=== PATIENT | male | born 1950 | race Caucasian/White ===

== ENCOUNTER 2018-01-05 10:00 | Inpatient (IN) | payer MEDICARE, OTHER ==
[2018-01-05 10:04] VITALS: BMI 22.8
--- NOTE | 2018-01-05 10:54 | C.PDOC ---
History Of Present Illness 67 year old male, whose PMHx includes HTN and Hyperlipidemia, is brought to the ED via ambulance for evaluation of chest pain. As per family member who is translating at bedside, pt has had 3 episodes of syncope in the last week. The episodes consist of chest pain, sob, diaphoresis, and then "losses consciousness ". PT denies falling to the ground or hitting his head. The episodes last approx 5 minutes before they self-resolve. Patient was given sublingual Nitroglycerin prior to arrival and states his chest pain has currently resolved. Patient denies any pain at this time, as well as nausea, vomiting, leg pain, leg swelling, extremity numbness/weakness. Patient states he takes a baby Aspirin on a daily basis. Also notes similar episode 5 years ago , after which he was suppose to get cath and has not done so. Time Seen by Provider: 01/05/18 10:22 Chief Complaint (Nursing): Syncope History Per: Patient, Family History/Exam Limitations: no limitations Onset/Duration Of Symptoms: Days, Intermittent Episodes Current Symptoms Are (Timing): Better Seizure Or Post-ictal Symptoms: None Fall Associated With With Symptoms: No Additional History Per: Patient, Family - Symptoms Of CVA Recent Aspirin Use: Yes (Last Taken) (baby aspirin on a daily basis) Past Medical History Reviewed: Historical Data, Nursing Documentation, Vital Signs Vital Signs: Last Vital Signs Temp 98.6 F 01/05/18 14:07 Pulse 66 01/05/18 14:07 Resp 16 01/05/18 14:07 BP 155/82 H 01/05/18 14:07 Pulse Ox 98 01/05/18 16:17 - Medical History PMH: HTN, Hyperlipidemia Surgical History: No Surg Hx Family History: States: Unknown Family Hx - Social History Hx Tobacco Use: Yes Hx Alcohol Use: No Hx Substance Use: No - Immunization History Hx Tetanus Toxoid Vaccination: No Hx Influenza Vaccination: No Hx Pneumococcal Vaccination: No Review Of Systems Constitutional: Positive for: Sweats Cardiovascular: Positive for: Chest Pain Respiratory: Positive for: Shortness of Breath Gastrointestinal: Negative for: Nausea, Vomiting Musculoskeletal: Negative for: Leg Pain Skin: Negative for: Other (leg swelling ) Neurological: Positive for: Other (loss of consciousness ). Negative for: Weakness, Numbness Physical Exam - Physical Exam Appears: Non-toxic, No Acute Distress Skin: Normal Color, Warm, Dry Head: Atraumatic, Normacephalic Eye(s): bilateral: Normal Inspection, EOMI Nose: Normal Oral Mucosa: Moist Neck: Normal, Normal ROM, Supple Chest: Symmetrical, No Deformity, No Tenderness Cardiovascular: Rhythm Regular Respiratory: Normal Breath Sounds, No Rales, No Rhonchi, No Wheezing Gastrointestinal/Abdominal: Soft, No Tenderness Extremity: Normal ROM, Capillary Refill (less than 2 seconds ), No Swelling Neurological/Psych: Oriented x3, Normal Speech, Normal Cognition ED Course And Treatment - Laboratory Results Result Diagrams: 01/05/18 10:56 01/05/18 10:56 ECG: Interpreted By Me, Viewed By Me ECG Rhythm: Sinus Rhythm Rate From EC O2 Sat by Pulse Oximetry: 98 (on RA) Pulse Ox Interpretation: Normal - Other Rad CXR X-Ray: Interpreted by Me, Viewed By Me, Read By Radiologist Interpretation: PROCEDURE: CHEST RADIOGRAPH, 1 VIEW. HISTORY: SOB. COMPARISON: None available. FINDINGS: LUNGS: Poor inspiration with low lung volumes, crowded bronchovascular markings and mild bibasilar atelectasis. PLEURA: No pneumothorax or pleural fluid seen. CARDIOVASCULAR: Cardiomegaly. OSSEOUS STRUCTURES: No significant abnormalities. VISUALIZED UPPER ABDOMEN: Normal. OTHER FINDINGS: None. IMPRESSION: Poor inspiration with low lung volumes, crowded bronchovascular markings and mild bibasilar atelectasis. - CT Scan/US CT Chest Other Rad Studies (CT/US): Interpreted By Me, Read By Radiologist, Radiology Report Reviewed CT/US Interpretation: PROCEDURE: CT Chest with contrast (Pulmonary Angiogram). HISTORY: SOB. COMPARISON: None available. TECHNIQUE: Axial computed tomography images were obtained of the chest in the pulmonary arterial phase of enhancement. Coronal and sagittal reformatted images were created and reviewed. Intravenous contrast dose: 100 cc Visipaque 320. Radiation dose: Total exam DLP = 415.24 mGy-cm. This CT exam was performed using one or more of the following dose reduction techniques: Automated exposure control, adjustment of the mA and/or kV according to patient size, and/or use of iterative reconstruction technique. FINDINGS: PULMONARY ARTERIES: The visualized pulmonary trunk, right and left main, lobar, segmental and proximal subsegmental branches of the pulmonary arteries are patent with no definitive central filling defects seen to suggest acute central pulmonary embolus. Pulmonary trunk measures approximately 3.2 cm. AORTA: No acute findings. No thoracic aortic aneurysm. Ascending thoracic aorta measures approximately 3.6 cm and descending thoracic aorta measures approximately 3.1 cm. There appears to be thrombus within superolateral aspect transverse portion of the aortic arch. Thrombus extends inferiorly along the descending thoracic aorta is well. Partially calcified atherosclerotic plaque also present along the at ascending transverse and descending thoracic aorta. LUNGS: Mild passive/dependent type atelectasis both posterior lower lung zones. Small bleb changes are present within both the posterior lung apices/upper lobes. . Additionally, there also appears to be some minor ground-glass opacities both lower lung almazan possibly representing some air trapping however no focal consolidation. PLEURAL SPACES: Unremarkable. No effusion or pneumothorax. HEART: Unremarkable. No cardiomegaly. No significant pericardial effusion. LYMPH NODES: No multiple small nonspecific mediastinal. Central airways midline and patent. No large central endoluminal lesions. Lymph nodes are present. BONES, CHEST WALL: Unremarkable. No fracture or destructive lesion. OTHER FINDINGS: Cholecystectomy. There is a rounded peripherally calcified mass lesion with central low attenuation within the dome of the liver that measures approximately 3.5 x 3.5 x 3.2 cm. This lesion is of uncertain etiology although could represent infectious/inflammatory lesion such is a peripherally calcified abscess or ecchinococcal cyst. The possibility of a benign peripherally calcified neoplasm not excluded. . Follow-up CT scan with liver protocol could be performed for further evaluation. IMPRESSION: No evidence of acute central pulmonary embolus. Mild passive/dependent type atelectasis both posterior lower lung zones. Small bleb changes are present within both the posterior lung apices/upper lobes. . Additionally, there also appears to be some minor ground-glass opacities both lower lung almazan possibly representing some air trapping however no focal consolidation. There is a rounded peripherally calcified mass lesion with central low attenuation within the dome of the liver that measures approximately 3.5 x 3.5 x 3.2 cm. This lesion is of uncertain etiology although could represent infectious/inflammatory lesion such is a peripherally calcified abscess or ecchinococcal cyst. The possibility of a benign peripherally calcified neoplasm not excluded. . Follow-up CT scan with liver protocol could be performed for further evaluation. Progress Note: Bloodwork, CXR, EKG ordered and reviewed. Aspirin PO administered. CAse discussed with Dr Joya , agreed upon plan and admission. Disposition - Disposition Disposition: HOSPITALIZED Disposition Time: 12:00 Condition: STABLE - Clinical Impression Clinical Impression: Syncope, Chest pain - PA / WIRE SETTER / Resident Statement MD/DO has reviewed & agrees with the documentation as recorded. - Scribe Statement The provider has reviewed the documentation as recorded by the Scribe (Mary Anne Cano) All medical record entries made by the Scribe were at my direction and personally dictated by me. I have reviewed the chart and agree that the record accurately reflects my personal performance of the history, physical exam, medical decision making, and the department course for this patient. I have also personally directed, reviewed, and agree with the discharge instructions and disposition.
[2018-01-05 11:03] LABS: BASO # 0.1 K/uL (0.0-0.2); BASO % 0.6 % (0.0-2.0); EOS % 0.3 % (0.0-4.0); HEMOGLOBIN 14.4 g/dL (12.0-18.0); LYMPH # 1.4 K/uL (1.0-4.3); MEAN CORPUSCULAR HEMOGLOBIN 28.8 pg (27.0-31.0); MEAN CORPUSCULAR HGB CONC 33.9 g/dL (33.0-37.0); MEAN PLATELET VOLUME 8.4 fL (7.2-11.7); MONO # 0.5 K/uL (0.0-0.8); NEUT # 8.5 K/uL (1.8-7.0); NEUT % 81.1 % (50.0-75.0); NRBC % 0.1 % (0.0-2.0); RBC 5.01 Mil/uL (4.40-5.90); RED CELL DISTRIBUTION WIDTH 14.8 % (11.5-14.5); WHITE BLOOD COUNT 10.5 K/uL (4.8-10.8)
[2018-01-05 11:18] LABS: INR 1.1; PROTHROMBIN TIME 12.3 SECONDS (9.7-12.2)
[2018-01-05 11:21] LABS: ALB/GLOB RATIO 1.3 (1.0-2.1); ALBUMIN 4.3 g/dL (3.5-5.0); ALT/SGPT 26 U/L (21-72); AST/SGOT 29 U/L (17-59); BLOOD UREA NITROGEN 21 mg/dL (9-20); CALCIUM 8.8 mg/dl (8.6-10.4); GFR AFRICAN-AMERICAN > 60; GFR NON-AFRICAN AMERICAN 50
[2018-01-05 11:30] LABS: B-TYPE NATRIURETIC PEPTIDE 2650 pg/mL (0-900)
[2018-01-05] MEDS ORDERED: Iodixanol 320 MG/ML 100 ML BOTTLE IV ONE (12:37)
--- NOTE | 2018-01-05 13:08 | RAD ---
PROCEDURE: CHEST RADIOGRAPH, 1 VIEW HISTORY: SOB COMPARISON: None available. FINDINGS: LUNGS: Poor inspiration with low lung volumes, crowded bronchovascular markings and mild bibasilar atelectasis. PLEURA: No pneumothorax or pleural fluid seen. CARDIOVASCULAR: Cardiomegaly. OSSEOUS STRUCTURES: No significant abnormalities. VISUALIZED UPPER ABDOMEN: Normal. OTHER FINDINGS: None. IMPRESSION: Poor inspiration with low lung volumes, crowded bronchovascular markings and mild bibasilar atelectasis.
--- NOTE | 2018-01-05 14:04 | CT ---
PROCEDURE: CT Chest with contrast (Pulmonary Angiogram) HISTORY: SOB COMPARISON: None available. TECHNIQUE: Axial computed tomography images were obtained of the chest in the pulmonary arterial phase of enhancement. Coronal and sagittal reformatted images were created and reviewed. Intravenous contrast dose: 100 cc Visipaque 320 Radiation dose: Total exam DLP = 415.24 mGy-cm. This CT exam was performed using one or more of the following dose reduction techniques: Automated exposure control, adjustment of the mA and/or kV according to patient size, and/or use of iterative reconstruction technique. FINDINGS: PULMONARY ARTERIES: The visualized pulmonary trunk, right and left main, lobar, segmental and proximal subsegmental branches of the pulmonary arteries are patent with no definitive central filling defects seen to suggest acute central pulmonary embolus. Pulmonary trunk measures approximately 3.2 cm AORTA: No acute findings. No thoracic aortic aneurysm. Ascending thoracic aorta measures approximately 3.6 cm and descending thoracic aorta measures approximately 3.1 cm. There appears to be thrombus within superolateral aspect transverse portion of the aortic arch. Thrombus extends inferiorly along the descending thoracic aorta is well. Partially calcified atherosclerotic plaque also present along the at ascending transverse and descending thoracic aorta. LUNGS: Mild passive/dependent type atelectasis both posterior lower lung zones. Small bleb changes are present within both the posterior lung apices/upper lobes. . Additionally, there also appears to be some minor ground-glass opacities both lower lung almazan possibly representing some air trapping however no focal consolidation. PLEURAL SPACES: Unremarkable. No effusion or pneumothorax. HEART: Unremarkable. No cardiomegaly. No significant pericardial effusion. LYMPH NODES: No multiple small nonspecific mediastinal Central airways midline and patent. No large central endoluminal lesions. Lymph nodes are present. BONES, CHEST WALL: Unremarkable. No fracture or destructive lesion OTHER FINDINGS: Cholecystectomy. There is a rounded peripherally calcified mass lesion with central low attenuation within the dome of the liver that measures approximately 3.5 x 3.5 x 3.2 cm. This lesion is of uncertain etiology although could represent infectious/inflammatory lesion such is a peripherally calcified abscess or ecchinococcal cyst. The possibility of a benign peripherally calcified neoplasm not excluded. . Follow-up CT scan with liver protocol could be performed for further evaluation. IMPRESSION: No evidence of acute central pulmonary embolus. Mild passive/dependent type atelectasis both posterior lower lung zones. Small bleb changes are present within both the posterior lung apices/upper lobes. . Additionally, there also appears to be some minor ground-glass opacities both lower lung almazan possibly representing some air trapping however no focal consolidation. There is a rounded peripherally calcified mass lesion with central low attenuation within the dome of the liver that measures approximately 3.5 x 3.5 x 3.2 cm. This lesion is of uncertain etiology although could represent infectious/inflammatory lesion such is a peripherally calcified abscess or ecchinococcal cyst. The possibility of a benign peripherally calcified neoplasm not excluded. . Follow-up CT scan with liver protocol could be performed for further evaluation.
[2018-01-05 20:21] VITALS: RESP 20
[2018-01-05 21:18] LABS: CK-MB 0.87 ng/mL (0.0-3.38); TROPONIN I 0.07 ng/mL (0.00-0.120)
[2018-01-06 03:42] LABS: CK-MB 0.92 ng/mL (0.0-3.38); TROPONIN I 0.079 ng/mL (0.00-0.120)
[2018-01-06] MEDS: Enoxaparin 40 mg Syringe SC SCH (09:48)
--- NOTE | 2018-01-06 11:03 | CP.PCM.HP ---
History of Present Illness - History of Present Illness History of Present Illness: History Of Present Illness 67 year old male, whose PMHx includes HTN and Hyperlipidemia, is brought to the ED via ambulance for evaluation of chest pain. As per family member who is translating at bedside, pt has had 3 episodes of syncope in the last week. The episodes consist of chest pain, sob, diaphoresis, and then "losses consciousness ". PT denies falling to the ground or hitting his head. The episodes last approx 5 minutes before they self-resolve. Patient was given sublingual Nitroglycerin prior to arrival and states his chest pain has currently resolved. Patient denies any pain at this time, as well as nausea, vomiting, leg pain, leg swelling, extremity numbness/weakness. Patient states he takes a baby Aspirin on a daily basis. Also notes similar episode 5 years ago , after which he was suppose to get cath and has not done so. Past Patient History - Past Social History Smoking Status: Light Smoker < 10 Cigarettes Daily - CARDIAC Hx Hypertension: Yes - MUSCULOSKELETAL/RHEUMATOLOGICAL Hx Falls: No - PSYCHIATRIC Hx Substance Use: No - SURGICAL HISTORY Hx Surgeries: Yes Hx Cholecystectomy: Yes (2012) - ANESTHESIA Hx Anesthesia: Yes Hx Anesthesia Reactions: No Hx Malignant Hyperthermia: No Has any member of the family had a problem w/ anesthesia?: No Meds Allergies/Adverse Reactions: Allergies Allergy/AdvReac Type Severity Reaction Status Date / Time No Known Allergies Allergy Unverified 05/17/15 13:18 Results - Vital Signs Recent Vital Signs: Last Vital Signs Temp 98.6 F 01/06/18 08:10 Pulse 44 L 01/06/18 08:54 Resp 20 01/06/18 08:54 BP 169/91 H 01/06/18 08:54 Pulse Ox 98 01/06/18 08:54 - Labs Result Diagrams: 01/05/18 10:56 01/05/18 10:56 Labs: Laboratory Results - last 24 hr 01/05/18 01/05/18 01/05/18 10:56 10:56 10:56 WBC 10.5 RBC 5.01 Hgb 14.4 Hct 42.6 MCV 85.0 MCH 28.8 MCHC 33.9 RDW 14.8 H Plt Count 191 MPV 8.4 Neut % (Auto) 81.1 H Lymph % (Auto) 13.0 L [place] % (Auto) 5.0 Eos % (Auto) 0.3 Baso % (Auto) 0.6 Neut # (Auto) 8.5 H Lymph # (Auto) 1.4 [place] # (Auto) 0.5 Eos # (Auto) 0.0 Baso # (Auto) 0.1 PT 12.3 H INR 1.1 APTT 29 D-Dimer, Quantitative 674 H Sodium 138 Potassium 4.2 Chloride 105 Carbon Dioxide 22 Anion Gap 15 BUN 21 H Creatinine 1.4 Est GFR ( Amer) > 60 Est GFR (Non-Af Amer) 50 Random Glucose 87 Calcium 8.8 Total Bilirubin 0.7 AST 29 ALT 26 Alkaline Phosphatase 69 Total Creatine Kinase 70 CK-MB (Mass) 0.70 Troponin I 0.0440 NT-Pro-B Natriuret Pep 2650 H Total Protein 7.7 Albumin 4.3 Globulin 3.4 Albumin/Globulin Ratio 1.3 Triglycerides Cholesterol LDL Cholesterol Direct HDL Cholesterol TSH 3rd Generation 01/05/18 01/06/18 20:49 03:16 WBC RBC Hgb Hct MCV MCH MCHC RDW Plt Count MPV Neut % (Auto) Lymph % (Auto) [place] % (Auto) Eos % (Auto) Baso % (Auto) Neut # (Auto) Lymph # (Auto) [place] # (Auto) Eos # (Auto) Baso # (Auto) PT INR APTT D-Dimer, Quantitative Sodium Potassium Chloride Carbon Dioxide Anion Gap BUN Creatinine Est GFR ( Amer) Est GFR (Non-Af Amer) Random Glucose Calcium Total Bilirubin AST ALT Alkaline Phosphatase Total Creatine Kinase 75 55 CK-MB (Mass) 0.87 0.92 Troponin I 0.0700 0.0790 NT-Pro-B Natriuret Pep Total Protein Albumin Globulin Albumin/Globulin Ratio Triglycerides 182 H Cholesterol 219 H LDL Cholesterol Direct 146 H HDL Cholesterol 37 TSH 3rd Generation 4.24
--- NOTE | 2018-01-06 18:00 | CT ---
PROCEDURE: CT HEAD WITHOUT CONTRAST. HISTORY: SYNCOPE COMPARISON: None available. TECHNIQUE: Axial computed tomography images were obtained through the head/brain without intravenous contrast. Radiation dose: Total exam DLP = 942.5 mGy-cm. This CT exam was performed using one or more of the following dose reduction techniques: Automated exposure control, adjustment of the mA and/or kV according to patient size, and/or use of iterative reconstruction technique. FINDINGS: HEMORRHAGE: No intracranial hemorrhage. BRAIN: No mass effect or edema. Mild atrophy. Mild chronic microvascular ischemic changes. VENTRICLES: Unremarkable. No hydrocephalus. CALVARIUM: Unremarkable. PARANASAL SINUSES: Unremarkable as visualized. No significant inflammatory changes. MASTOID AIR CELLS: Unremarkable as visualized. No inflammatory changes. OTHER FINDINGS: None. IMPRESSION: No acute intracranial pathology. Age-related changes.
--- NOTE | 2018-01-06 18:17 | CP.PCM.PN ---
Subjective - Date & Time of Evaluation Date of Evaluation: 01/06/18 Time of Evaluation: 19:00 - Subjective Subjective: pt seen and examined at bedside Objective - Vital Signs/Intake and Output Vital Signs (last 24 hours): Temp Pulse Resp BP Pulse Ox 97.5 F L 64 20 161/77 H 98 01/06/18 15:05 01/06/18 15:05 01/06/18 15:05 01/06/18 15:05 01/06/18 15:05 - Medications Medications: Current Medications Aspirin (Ecotrin) 81 mg PO DAILY [facility] Last Admin: 01/06/18 09:49 Dose: 81 mg Enoxaparin Sodium (Lovenox) 40 mg SC DAILY [facility] Last Admin: 01/06/18 09:48 Dose: 40 mg Losartan Potassium (Cozaar) 25 mg PO DAILY [facility] Last Admin: 01/06/18 09:49 Dose: 25 mg Pneumococcal Polyvalent Vaccine (Pneumovax 23 Vaccine) 0.5 ml IM .ONCE ONE Stop: 01/07/18 10:01 Rosuvastatin Calcium (Crestor) 10 mg PO HS [facility] Last Admin: 01/05/18 22:30 Dose: 10 mg - Labs Labs: 01/05/18 10:56 01/05/18 10:56 PT 12.3 SECONDS (9.7-12.2) H 01/05/18 10:56 INR 1.1 01/05/18 10:56 APTT 29 SECONDS (21-34) 01/05/18 10:56
--- NOTE | 2018-01-06 22:36 | CON ---
DATE: 01/06/2018 REASON FOR CONSULTATION: Chest pain and recurrent syncopal episodes as well as periods of sinus bradycardia. HISTORY OF PRESENT ILLNESS: The patient is a 67-year-old male who is a smoker and occasional drinker who was brought in by the EMS by the family because of fainting few times in the past according to a family member who witnessed that the patient will be sitting and then he will wake up not knowing where he is at with no reported fall or seizure activity. The patient does recall experiencing dizziness prior to fainting. The patient did report chest pain. The patient denies any prior history of heart attack. SOCIAL HISTORY: The patient is smoker and occasional drinker. MEDICATIONS: Cozaar 25 mg once a day, Crestor 10 mg once a day, aspirin 81 mg once a day, Lovenox 40 mg subcutaneous once a day. REVIEW OF SYSTEMS: No fever or chills. No productive cough. No associated diaphoresis, and no recent fall. PHYSICAL EXAMINATION: GENERAL: The patient is an elderly male who does not appear to be in acute distress. VITAL SIGNS: Blood pressure heart rate the lowest was 44 beats per minute, respirations 20, temperature 98.1. HEENT: Normocephalic. CHEST: Clear. HEART: S1 and S2 regular. ABDOMEN: Soft. EXTREMITIES: No edema. LABORATORY DATA: Hemoglobin and hematocrit 14.4 and 42.6, white count 10.5, platelet count 191,000. SMA-7, sodium 138, potassium 4.2, chloride 105, CO2 of 22, glucose 87, BUN 21, creatinine 1.4. Three sets of troponins are negative. ProBNP is 2650. Triglycerides 182, total cholesterol 219, LDL cholesterol is 146, these three are elevated. TSH level is within normal limit. D-dimer is 674. INR is 1.1. Chest CT angio with PE protocol revealed no evidence of acute central pulmonary embolus. Mild passive dependent type atelectasis in both posterior lower lung zones. Small blood changes are present within both the posterior lung apices. Also minor ground-glass opacities both lower lung almazan, possibly representing some air trapping. There is rounded peripherally calcified mass lesion within the central low attenuation within the dome of the liver that measures approximately 3.5 x 3.5 x 3.2 cm, of uncertain etiology, although could represent infectious/inflammatory lesions such as peripherally calcified abscess or echinococcal cyst. Followup CT scan with liver protocol could be performed. EKG revealed sinus rhythm at rate of 78, LVH by voltage. ASSESSMENT: 1. Recurrent syncope. 2. Rule out symptomatic bradycardia. 3. Chest pain, myocardial infarction is ruled out. 4. Hyperlipidemia. 5. Liver mass. RECOMMENDATIONS: Continue Cozaar at 25 mg once a day, Crestor at 10 mg once a day, aspirin 81 mg once a day, subcutaneous Lovenox 40 mg once a day. Obtain head CT scan without contrast as well as carotid Doppler. Obtain an echocardiographic study, and I will apply 24-hour Holter monitor in the meantime. The patient may eventually need cardiac catheterization. However, other neuro causes for syncope should be excluded, especially in the presence of a liver mass. I recommend GI evaluation. Parker Workman MD
--- NOTE | 2018-01-06 22:55 | CARD ---
APPROVED REPORT EKG Measurement Heart [id number] <Conclusion> Normal sinus rhythm Voltage criteria for left ventricular hypertrophy Abnormal ECG
[2018-01-07] MEDS ORDERED: Pneumococcal 23-Valent Vaccine IM ONE (10:00)
[2018-01-07] MEDS ORDERED: Enoxaparin 40 mg Syringe SC SCH (10:00)
[2018-01-07] MEDS: Enoxaparin 40 mg Syringe SC SCH (10:19)
--- NOTE | 2018-01-07 11:47 | PN ---
DATE: 01/07/2018 LOCATION: [facility], bed B SUBJECTIVE: This is a 67 years old male seen initially for GI consultation as requested by the admitting MD on 01/06/2018, reexamined again early today with less reported actual chest pain, but midepigastric pain seen and evaluated again by the retail consultant on the case due to his bradycardia with reported mild nausea with dyspepsia, but no active bleeding and no reported vomiting. The entire chart is reviewed including but not limited to most recent lab and radiology study results, current and previous medication list, current and previous medical events. [place] was ruled out by the retail consultant. The most recent lab results showed increased lipids profile, but normal CBC with PT mildly elevated to 12.3. Chest CAT scan official report is seen as well as CAT scan of the head., with reported calcified mass lesion in the liver and MRCP in my opinion showed be performed. PHYSICAL EXAMINATION: GENERAL: A 67 years old male appeared to be awake, alert, oriented. VITAL SIGNS: Afebrile with pulse of 50, respiratory rate 20 to 22, blood pressure of 154/80. HEENT: Showed pale dry oral mucous membrane. Nonicteric sclerae. LUNGS: Few scattered crepitation. Decreased air entry at bases. HEART: Positive S1 and S2. ABDOMEN: Soft. Bowel sounds are present with slight generalized tenderness. No mass or organomegaly. No rebound tenderness or guarding. EXTREMITIES: Without significant edema, clubbing or cyanosis. NEUROLOGIC: No reported new neurological deficits, sensory or motor. No new reported focal deficits. Peripheral pulses present. IMPRESSION: 1. Chest pain, most likely noncardiac to rule out reexacerbation of peptic ulcer disease. 2. Reported syncopal episodes before. 3. Known history of hypertension, hyperlipidemia. 4. Bradycardia by recent history. 5. Abnormal radiology study results indicative of possible hepatic mass of unclear etiology. SUGGESTIONS: 1. Agree with your plan. 2. Cancer markers. 3. MRCP. 4. Endoscopic evaluation of the GI tract only after the patient is fully reevaluated by the retail consultant on the case, Dr. Workman due to the patient's bradycardia. Further evaluation and recommendation to follow. Brent Whyte MD [facility] # [id number]
[2018-01-07] MEDS ORDERED: Iodixanol 320 MG/ML 100 ML BOTTLE IV ONE (12:08)
[2018-01-07 12:13] LABS: BASO # 0.1 K/uL (0.0-0.2); BASO % 0.7 % (0.0-2.0); EOS # 0.4 K/uL (0.0-0.7); EOS % 5.4 % (0.0-4.0); HEMOGLOBIN 14.5 g/dL (12.0-18.0); LYMPH % 39.4 % (20.0-40.0); MEAN CELL VOLUME 85.7 fL (80.0-94.0); MEAN CORPUSCULAR HGB CONC 33.8 g/dL (33.0-37.0); MEAN PLATELET VOLUME 8.2 fL (7.2-11.7); MONO # 0.6 K/uL (0.0-0.8); MONO % 7.3 % (0.0-10.0); NEUT # 3.6 K/uL (1.8-7.0); NEUT % 47.2 % (50.0-75.0); RBC 5.01 Mil/uL (4.40-5.90); RED CELL DISTRIBUTION WIDTH 14.8 % (11.5-14.5); WHITE BLOOD COUNT 7.6 K/uL (4.8-10.8)
[2018-01-07 12:18] LABS: INR 1.1; PROTHROMBIN TIME 12.2 SECONDS (9.7-12.2)
[2018-01-07 12:35] LABS: ALB/GLOB RATIO 1.2 (1.0-2.1); ALT/SGPT 18 U/L (21-72); AST/SGOT 26 U/L (17-59); BLOOD UREA NITROGEN 18 mg/dL (9-20); CALCIUM 9.1 mg/dl (8.6-10.4); GFR AFRICAN-AMERICAN > 60; GFR NON-AFRICAN AMERICAN 55
--- NOTE | 2018-01-07 18:10 | US ---
HISTORY: liver mass by c.t.scan COMPARISON: CT abdomen and pelvis performed the same day. TECHNIQUE: Sonographic evaluation of the abdomen. FINDINGS: LIVER: Measures 15.6 cm. There is diffuse increased echogenicity of the liver parenchyma. There is a 3.7 x 3.7 x 3.6 cm well-circumscribed partially calcified round hypoechoic mass in the right hepatic lobe. No intrahepatic bile duct dilatation. GALLBLADDER: Surgically absent. COMMON BILE DUCT: Measures 8.0 mm. No stones. Mild dilatation in keeping with postcholecystectomy status. PANCREAS: Unremarkable as visualized. No mass. No ductal dilatation. RIGHT KIDNEY: Measures 9.0cm. Normal echogenicity. No calculus, mass, or hydronephrosis. There are multiple simple cysts, the largest in the lower pole measures 3.1 x 2.4 x 2.9 cm. LEFT KIDNEY: Measures 11.5cm. Normal echogenicity. No calculus, mass, or hydronephrosis. There are 2 simple cysts in the lower pole, the larger measures 1.3 x 1.3 x 1.0 cm. SPLEEN: Not visualized. AORTA: The aorta is ectatic. Atherosclerotic changes. IVC: Unremarkable. OTHER FINDINGS: None. IMPRESSION: 3.7 x 3.7 x 2.6 cm partially calcified round mass in the right hepatic lobe, the differential considerations include nonspecific infectious/ inflammatory processes including echinococcal cyst, calcified hematoma and calcified neoplasm. Fatty liver.
--- NOTE | 2018-01-07 21:20 | PN ---
DATE: 01/07/2018 SUBJECTIVE: The patient denies any abdominal pain, dizziness or chest pain. The patient's last heart rate this morning was 47 beats per minute. PHYSICAL EXAMINATION: VITAL SIGNS: Blood pressure 164/85, heart rate 59, temperature 97.8, respirations 20. HEENT: Normocephalic. CHEST: Clear. HEART: S1 and S2 regular. ABDOMEN: Soft. EXTREMITIES: No edema. LABORATORY DATA: Today's SMA-7 is within normal limits except glucose of 73 and carbon dioxide of 31. Today's hemoglobin and hematocrit 14.5 and 43, white count and platelet count are within normal limit. ASSESSMENT: 1. Recurrent syncope. 2. Sinus bradycardia. 3. Chest pain, myocardial infarction is ruled out. 4. A 3.5 x 3.5 x 3.2 peripherally calcified liver mass noted on the chest CT scan. 5. Rule out underlying ____ disease. RECOMMENDATIONS: Continue current Cozaar at 100 mg once a day, Crestor at 10 mg once a day, aspirin 81 mg once a day, Lovenox at 40 mg subcutaneously once a day. I will review the official report of the liver CT scan as well as the abdominal ultrasound. Head CT scan was already done and did not reveal any acute findings. Case was discussed with the patient's family as well as the primary physician. If the patient is cleared for cardiac catheterization, the procedure will be performed as early as Tuesday. Parker Workman MD
[2018-01-08] MEDS: Enoxaparin 40 mg Syringe SC SCH (10:42)
--- NOTE | 2018-01-08 14:44 | PN ---
DATE: 01/08/2018 LOCATION: 668, bed B. SUBJECTIVE: This is a 67-year-old male seen and examined in rounds early today without any significant clinical changes but again with lower heart rate. Seen and reexamined again by the [facility] consultant on the case. The patient has been denying any significant abdominal pain or chest pain this morning with mild dizziness but intermittent periods of mild nausea with slight dyspepsia. Most recent lab results showed normal CBC with increased PTT and period of hypoglycemia with elevated lipid profile. His CEA level is 3.4 but normal alpha-fetoprotein. PHYSICAL EXAMINATION: GENERAL: A 67-year-old male, awake, alert, and oriented. VITAL SIGNS: Afebrile with pulse 62, respiratory rate 20 to 22, blood pressure 138/76. HEENT: Showed pale, dry oral mucous membranes. Nonicteric sclerae. LUNGS: A few scattered crepitation. Decreased air entry at bases. HEART: Positive S1 and S2. ABDOMEN: Soft, mild generalized slight tenderness. No mass or organomegaly. No rebound tenderness or guarding. NEUROLOGIC: No reported new neurological deficits, sensory or motor. Peripheral pulses are present bilaterally. IMPRESSION: 1. Chest pain, most likely noncardiac. 2. Bradycardia. 3. Liver mass lesion of unclear etiology. 4. Reported syncopal episodes before. 5. Known history of hyperlipidemia and hypertension. SUGGESTIONS: 1. MRCP. 2. The patient may need biopsy of the hepatic mass guided by ultrasound by the IR staff. 3. Due to the elevated CEA level, colonoscopy is to be kept in mind when the patient is more stable clinically. That to be discussed at length with the admitting medical staff as well as the [facility] consultant on the case. Further recommendation to follow. Brent Whyte MD
--- NOTE | 2018-01-08 16:09 | CT ---
PROCEDURE: CT Abdomen with and without intravenous contrast HISTORY: mass COMPARISON: Ultrasound abdomen from 01/07/2018. TECHNIQUE: Axial images of the abdomen from lung bases to iliac crest with and without intravenous contrast enhancement according to the standard department liver protocol triple phase examination. Coronal and sagittal reformats generated. Oral contrast also administered. Intravenous contrast Dose: 100 mL Visipaque Radiation dose: Total exam DLP = 1299.98 mGy-cm. This CT exam was performed using one or more of the following dose reduction techniques: Automated exposure control, adjustment of the mA and/or kV according to patient size, and/or use of iterative reconstruction technique. FINDINGS: LOWER THORAX: There is subsegmental atelectasis in the lower lobes. LIVER: The liver is normal in size. There is a 3.2 x 3.5 cm peripherally calcified nonenhancing low-attenuation mass in the right hepatic lobe. No intrahepatic biliary ductal dilatation. GALLBLADDER AND BILE DUCTS: Surgically absent. PANCREAS: Normal in size. No gross lesion or ductal dilatation. SPLEEN: Normal in size and appearance. ADRENALS: No discrete nodule. KIDNEYS AND URETERS: Normal in size with homogeneous enhancement. There are punctate nonobstructing stones in the left kidney. There are simple cysts in the right kidney, the largest exophytic cyst in the lower pole measures 2.7 x 3.2 cm. Small subcentimeter simple cysts in the left kidney. No hydronephrosis. No solid mass. 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 BOWEL:: The small bowel loops are normal in caliber. There is left colonic diverticulosis without CT evidence for acute diverticulitis. No bowel dilatation or obstruction. APPENDIX: Normal appendix. PERITONEUM: No free fluid. No free air. LYMPH NODES: No enlarged lymph nodes. BLADDER: Normal in appearance. REPRODUCTIVE: Unremarkable. BONES: No acute fracture. OTHER FINDINGS: Small fat containing umbilical hernia. IMPRESSION: Rim calcified 3.2 x 3.5 cm nonenhancing round mass in the right hepatic lobe. The differential considerations include nonspecific infectious/ inflammatory processes including echinococcus cyst, chronic abscess, partially calcified hematoma or calcified neoplasm. Additional non acute findings as described above. A preliminary report was provided by [email or web address].
--- NOTE | 2018-01-08 19:28 | PN ---
DATE: 01/08/2018 SUBJECTIVE: The patient denies any abdominal pain or chest pain. No dizziness and no reported significant bradycardia. PHYSICAL EXAMINATION: VITAL SIGNS: Blood pressure 146/82, heart rate 62, temperature 97.4, respirations 20. HEENT: Normocephalic. CHEST: Clear. HEART: S1 and S2 regular. ABDOMEN: Soft. EXTREMITIES: No edema. Abdominal ultrasound revealed 3.7 x 3.7 x 2.6 cm partially calcified mass in the right hepatic lobe. His differential diagnosis includes nonspecific infection, inflammatory processes including echinococcus cyst, calcified hematoma, or calcified neoplasm, fatty liver. Liver CT scan was performed but the report is still pending. ASSESSMENT: 1. Chest pain, myocardial infarction is ruled out. 2. Recurrent syncope. 3. Partially calcified liver mass. 4. Hyperlipidemia. RECOMMENDATIONS: Continue current aspirin 81 mg once a day, Crestor 10 mg once a day, Cozaar 100 mg once a day, subcutaneous Lovenox at 40 mg once a day. I will follow official report of liver CT scan prior to scheduling the patient for cardiac catheterization. Parker Workman MD
--- NOTE | 2018-01-08 23:26 | CON ---
DATE: 01/06/[address] Whyte to Dr. Rafat Rosales. I was called for GI consultation by the admitting MD. The patient is seen and fully examined on 01/06/2018 as requested by the admitting medical staff. Again, the entire chart is reviewed including but not limited to the most recent lab and radiology study results, current and the previous medication lists, current and the previous medical events. HISTORY OF PRESENT ILLNESS: This is a 67 years old male who was admitted to the hospital through the emergency room due to reported chest pain, seen by artist consultant for that reason, and RI was ruled out associated with what reported as three episodes of syncope last week of unclear etiology. There was intermittent period of dyspepsia, but no reported active bleeding, significant shortness of breath, chills, or fever. PAST MEDICAL HISTORY: Including mainly but not limited to, 1. Hypertension. 2. Hyperlipidemia. 3. Peptic ulcer disease. 4. Reported episodes of syncope before. FAMILY HISTORY: Unknown. SOCIAL HISTORY: Positive for cigarette smoking, but denied alcohol intake. CURRENT MEDICATIONS: Post-admission medication list was reviewed. Troponin level was reported to be negative. ALLERGY TO MEDICATION: UNCLEAR. Initial blood workup showed normal SMA-7 as well as normal CBC. Abdomen and pelvic CAT scan was indicative for status post cholecystectomy as per the report as well as reported calcified hepatic mass lesion of unclear etiology. No possibility of . PHYSICAL EXAMINATION: GENERAL: A 67 years old male, appears to be somewhat sleepy. Complaining of mild midepigastric and midsternal discomfort. VITAL SIGNS: Afebrile with a pulse of 60, respiratory rate 18 to 20, blood pressure 150/80. HEENT: Showed pale, dry oral mucous membranes mildly, nonicteric sclerae. LYMPH NODES: No lymphadenitis or lymphadenopathy. LUNGS: Few scattered crepitation. Decreased air entry at bases. HEART: Positive S1 and S2. ABDOMEN: Soft with mild abdominal distention. No mass or organomegaly. No rebound tenderness or guarding. EXTREMITIES: Without significant clubbing, cyanosis or edema. NEUROLOGIC: No reported new neurological deficits, sensory or motor. IMPRESSION: 1. Re-exacerbation of peptic ulcer disease. 2. Hepatic mass lesion of unclear etiology. 3. Syncopal episodes. 4. Chest pain, most likely noncardiac. SUGGESTIONS: 1. Agree with your plan. 2. Carotid ultrasound. 3. MRCP with contrast. 4. Cancer markers including alpha-fetoprotein, CEA, and CA 19-9. 5. Endoscopic evaluation of the GI tract only after complete cardiology workup, as needed. 6. Further recommendation to follow. The patient may need CAT scan guided needle biopsy of the hepatic lesion depending on the outcome of the MRCP. Thank you for letting me to participate in your patient's case management. Brent Whyte MD
--- NOTE | 2018-01-09 00:02 | CP.PCM.PN ---
Subjective - Date & Time of Evaluation Date of Evaluation: 01/07/18 Time of Evaluation: 19:00 - Subjective Subjective: The patient seen and examined Objective - Vital Signs/Intake and Output Vital Signs (last 24 hours): Temp Pulse Resp BP Pulse Ox 97.6 F 68 20 169/79 H 97 01/08/18 17:16 01/08/18 21:00 01/08/18 17:16 01/08/18 17:16 01/08/18 17:16 - Medications Medications: Current Medications Aspirin (Ecotrin) 81 mg PO DAILY [facility] Last Admin: 01/08/18 10:42 Dose: 81 mg Enoxaparin Sodium (Lovenox) 40 mg SC DAILY [facility] Last Admin: 01/08/18 10:42 Dose: 40 mg Losartan Potassium (Cozaar) 100 mg PO DAILY [facility] Last Admin: 01/08/18 10:42 Dose: 100 mg Rosuvastatin Calcium (Crestor) 10 mg PO HS [facility] Last Admin: 01/08/18 21:37 Dose: 10 mg - Labs Labs: 01/07/18 11:56 01/07/18 11:56 PT 12.2 SECONDS (9.7-12.2) 01/07/18 11:56 INR 1.1 01/07/18 11:56 APTT 37 SECONDS (21-34) H D 01/07/18 11:56
--- NOTE | 2018-01-09 00:06 | CP.PCM.PN ---
Subjective - Date & Time of Evaluation Date of Evaluation: 01/07/18 Time of Evaluation: 17:00 - Subjective Subjective: The patient seen and examined Objective - Vital Signs/Intake and Output Vital Signs (last 24 hours): Temp Pulse Resp BP Pulse Ox 97.6 F 68 20 169/79 H 97 01/08/18 17:16 01/08/18 21:00 01/08/18 17:16 01/08/18 17:16 01/08/18 17:16 - Medications Medications: Current Medications Aspirin (Ecotrin) 81 mg PO DAILY [facility] Last Admin: 01/08/18 10:42 Dose: 81 mg Enoxaparin Sodium (Lovenox) 40 mg SC DAILY [facility] Last Admin: 01/08/18 10:42 Dose: 40 mg Losartan Potassium (Cozaar) 100 mg PO DAILY [facility] Last Admin: 01/08/18 10:42 Dose: 100 mg Rosuvastatin Calcium (Crestor) 10 mg PO HS [facility] Last Admin: 01/08/18 21:37 Dose: 10 mg - Labs Labs: 01/07/18 11:56 01/07/18 11:56 PT 12.2 SECONDS (9.7-12.2) 01/07/18 11:56 INR 1.1 01/07/18 11:56 APTT 37 SECONDS (21-34) H D 01/07/18 11:56
[2018-01-09 02:15] VITALS: TEMP 97.5
[2018-01-09 08:35] VITALS: BP 162/92; PULSE 61; O2SAT 97
[2018-01-09] MEDS: Enoxaparin 40 mg Syringe SC SCH (10:39)
--- NOTE | 2018-01-09 10:42 | CARD ---
APPROVED REPORT EXAM: Two-dimensional and M-mode echocardiogram with Doppler and color Doppler. Other Information Quality : [employer] : INDICATION Chest Pain RISK FACTORS Hypertension Hyperlipidemia 2D DIMENSIONS IVSd1.2 (0.7-1.1cm)LVDd4.7 (3.9-5.9cm) PWd1.2 (0.7-1.1cm)LVDs3.3 (2.5-4.0cm) FS (%) 30.7 %LVEF (%)58.2 (>50%) M-Mode DIMENSIONS Left Atrium (MM)3.20 (2.5-4.0cm)IVSd1.32 (0.7-1.1cm) Aortic Root3.79 (2.2-3.7cm)LVDd4.88 (4.0-5.6cm) Aortic Cusp Exc.2.44 (1.5-2.0cm)PWd1.16 (0.7-1.1cm) FS (%) 28 %LVDs3.49 (2.0-3.8cm) LVEF (%)55 (>50%) Mitral Valve MV E Bvqcyvvm88.3cm/sMV A Jjjwrtfy56.4cm/sE/A ratio0.6 TDI E/Lateral E'0.0E/Medial E'0.0 Tricuspid Valve TR Peak Lqwbbjsc667ns/sTR Peak Gr.[id number] LEFT VENTRICLE The left ventricle is normal size. There is normal left ventricular wall thickness. The left ventricular function is normal. The left ventricular ejection fraction is within the normal range. No regional wall motion abnormalities noted. Transmitral Doppler flow pattern is Grade I-abnormal relaxation pattern. Normal lv filling pressure No left ventricle thrombus noted on this study. There is no ventricular septal defect visualized. There is no left ventricular aneurysm. There is no mass noted in the left ventricle. RIGHT VENTRICLE The right ventricle is normal size. There is normal right ventricular wall thickness. The right ventricular systolic function is normal. ATRIA The left atrium size is normal. The right atrium size is normal. The interatrial septum is intact with no evidence for an atrial septal defect. AORTIC VALVE The aortic valve is normal in structure and function. No aortic regurgitation is present. There is no aortic valvular stenosis. There is no aortic valvular vegetation. MITRAL VALVE The mitral valve is normal in structure and function. There is no evidence of mitral valve prolapse. There is no mitral valve stenosis. Mitral regurgitation is mild. TRICUSPID VALVE The tricuspid valve is normal in structure and function. There is no tricuspid valve regurgitation noted. There is no tricuspid valve prolapse or vegetation. There is no tricuspid valve stenosis. PULMONIC VALVE The pulmonary valve is normal in structure and function. There is no pulmonic valvular regurgitation. There is no pulmonic valvular stenosis. GREAT VESSELS The aortic root is normal in size. The ascending aorta is normal in size. The pulmonary artery is normal. The IVC is normal in size and collapses >50% with inspiration. PERICARDIAL EFFUSION The pericardium appears normal. There is no pleural effusion. <Conclusion> The left ventricular function is normal. The left ventricular ejection fraction is within the normal range. No regional wall motion abnormalities noted. Mitral regurgitation is mild.
[2018-01-09] MEDS ORDERED: Lidocaine 2% MPF (5 ml) Inj ONE (12:58)
[2018-01-09] MEDS ORDERED: Midazolam 2 MG/2 ML VIAL ONE (13:12)
[2018-01-09] MEDS ORDERED: DiphenhydrAMINE 50 mg/ml Inj ONE (13:12)
[2018-01-09] MEDS ORDERED: Iodixanol 320 MG/ML 200 ML BOTTLE IV ONE (13:13)
[2018-01-09] MEDS ORDERED: Iodixanol 320 MG/ML 100 ML BOTTLE IV ONE (13:13)
[2018-01-09] MEDS ORDERED: Heparin25000 units/250ml 1/2NS 25,000 UNITS/250 ML BAG IV ONE (15:24)
--- NOTE | 2018-01-10 05:56 | CP.PCM.DIS ---
Provider - Provider Date of Admission: 01/06/18 18:47 Attending physician: Rafat Rosales MD Time Spent in preparation of Discharge (in minutes): 45 Hospital Course - Lab Results Lab Results: Most Recent Lab Values WBC 7.6 K/uL (4.8-10.8) 01/07/18 11:56 RBC 5.01 Mil/uL (4.40-5.90) 01/07/18 11:56 Hgb 14.5 g/dL (12.0-18.0) 01/07/18 11:56 Hct 43.0 % (35.0-51.0) 01/07/18 11:56 MCV 85.7 fL (80.0-94.0) 01/07/18 11:56 MCH 29.0 pg (27.0-31.0) 01/07/18 11:56 MCHC 33.8 g/dL (33.0-37.0) 01/07/18 11:56 RDW 14.8 % (11.5-14.5) H 01/07/18 11:56 Plt Count 206 K/uL (130-400) 01/07/18 11:56 MPV 8.2 fL (7.2-11.7) 01/07/18 11:56 Neut % (Auto) 47.2 % (50.0-75.0) L 01/07/18 11:56 Lymph % (Auto) 39.4 % (20.0-40.0) 01/07/18 11:56 Wharton % (Auto) 7.3 % (0.0-10.0) 01/07/18 11:56 Eos % (Auto) 5.4 % (0.0-4.0) H 01/07/18 11:56 Baso % (Auto) 0.7 % (0.0-2.0) 01/07/18 11:56 Neut # (Auto) 3.6 K/uL (1.8-7.0) 01/07/18 11:56 Lymph # (Auto) 3.0 K/uL (1.0-4.3) 01/07/18 11:56 Wharton # (Auto) 0.6 K/uL (0.0-0.8) 01/07/18 11:56 Eos # (Auto) 0.4 K/uL (0.0-0.7) 01/07/18 11:56 Baso # (Auto) 0.1 K/uL (0.0-0.2) 01/07/18 11:56 Retic Count 0.9 % (0.5-1.5) 01/07/18 11:56 PT 12.2 SECONDS (9.7-12.2) 01/07/18 11:56 INR 1.1 01/07/18 11:56 APTT 37 SECONDS (21-34) H D 01/07/18 11:56 D-Dimer, Quantitative 674 ng/mlDDU (0-243) H 01/05/18 10:56 Sodium 140 mmol/L (132-148) 01/07/18 11:56 Potassium 4.3 mmol/L (3.6-5.2) 01/07/18 11:56 Chloride 101 mmol/L (98-107) 01/07/18 11:56 Carbon Dioxide 31 mmol/L (22-30) H 01/07/18 11:56 Anion Gap 12 (10-20) 01/07/18 11:56 BUN 18 mg/dL (9-20) 01/07/18 11:56 Creatinine 1.3 mg/dL (0.8-1.5) 01/07/18 11:56 Est GFR ( Amer) > 60 01/07/18 11:56 Est GFR (Non-Af Amer) 55 01/07/18 11:56 POC Glucose (mg/dL) 82 mg/dL (65-110) 01/07/18 11:38 Random Glucose 73 mg/dL (75-110) L 01/07/18 11:56 Calcium 9.1 mg/dl (8.6-10.4) 01/07/18 11:56 Total Bilirubin 0.7 mg/dL (0.2-1.3) 01/07/18 11:56 AST 26 U/L (17-59) 01/07/18 11:56 ALT 18 U/L (21-72) L D 01/07/18 11:56 Alkaline Phosphatase 62 U/L (38-126) 01/07/18 11:56 Total Creatine Kinase 55 U/L (55-170) 01/06/18 03:16 CK-MB (Mass) 0.92 ng/mL (0.0-3.38) 01/06/18 03:16 Troponin I 0.0790 ng/mL (0.00-0.120) 01/06/18 03:16 NT-Pro-B Natriuret Pep 2650 pg/mL (0-900) H 01/05/18 10:56 Total Protein 7.4 g/dL (6.3-8.3) 01/07/18 11:56 Albumin 4.0 g/dL (3.5-5.0) 01/07/18 11:56 Globulin 3.3 gm/dL (2.2-3.9) 01/07/18 11:56 Albumin/Globulin Ratio 1.2 (1.0-2.1) 01/07/18 11:56 Triglycerides 182 mg/dL (0-149) H 01/05/18 20:49 Cholesterol 219 mg/dL (0-199) H 01/05/18 20:49 LDL Cholesterol Direct 146 mg/dL (0-129) H 01/05/18 20:49 HDL Cholesterol 37 mg/dL (30-70) 01/05/18 20:49 Alpha Fetoprotein 3.3 ng/mL (0.0-7.5) 01/07/18 11:56 Carcinoembryonic Ag 3.4 ng/mL (0-3.0) H 01/07/18 11:56 TSH 3rd Generation 4.24 mIU/L (0.46-4.68) 01/05/18 20:49 - Hospital Course Hospital Course: Pt is stable for discharge Discharge Plan - Follow Up Plan Condition: STABLE [place] [facility] [place]
--- NOTE | 2018-01-10 06:23 | CARDCATH ---
PROCEDURE DATE: 01/09/2018 INDICATIONS: The patient is a 67 years old male who has a history of hypertension. He presented because of typical retrosternal chest pain as well as recurrent syncope. Cardiac catheterization was recommended. The procedure and its risks were explained to the patient who understood and agreed for the procedure. DESCRIPTION OF PROCEDURE: After local infiltration with 1% lidocaine, a 6-Georgian sheath was placed in the right femoral artery. Left and right coronary angiography was performed with 6-Georgian JL4 and JR4 diagnostic catheters. Left ventriculogram was performed with a 6-Georgian pigtail catheter. The patient tolerated the procedure well without any complications. ANGIOGRAPHIC FINDINGS: Selective injection of the left coronary artery revealed the left main to be a normal vessel. Left main bifurcated into a medium sized LAD and small ramus and a medium-sized circumflex artery. The LAD was totally occluded after the origin of the first diagonal branch and first adductor pinner printed circuit boards. The circumflex artery had proximal 60% concentric narrowing followed by occlusion of what appears to be a stump of first marginal branch. The second marginal branch was totally occluded with retrograde filling from the diagonal circulation and the third marginal branch had 70% eccentric proximal stenosis. Selective injection of right coronary artery revealed a medium-sized dominant vessel. I doubt he had a critical complex lesion in its mid portion. Retrograde filling of the entire LAD up to its proximal segment was noted via septal perforators from the right coronary circulation. Left ventriculogram performed in MCGRATH projection revealed mild inferobasal hypokinesis. Overall ejection fraction was estimated at 55%. CONCLUSION: Three-vessel coronary artery disease with total occlusion of the LAD after the origin of first diagonal branch with significant marginal branch stenosed disease with total occlusion of the first marginal branch and the second marginal branch and 70% extensive stenosis of third marginal branch with complex critical disease of 95% of the mid RCA with preserved left ventricular systolic function. RECOMMENDATIONS: The patient will be observed in the ICU. Heparin 5000 intravenous bolus was ordered, and heparin infusion will be started. The patient will be transferred for coronary artery bypass surgery if the family agrees. Parker Workman MD
--- NOTE | 2018-01-10 11:21 | VASCLAB ---
PROCEDURE: HISTORY: SYNCOPE COMPARISON: None available. TECHNIQUE: Grayscale and duplex Doppler evaluation of the cervical carotid and vertebral arteries were performed. The common carotid, carotid bifurcations and cervical Internal Carotid Artery (ICA) and proximal External Carotid Artery (ECA) were evaluated. The vertebral arteries were evaluated for gross patency and flow direction. Report prepared by AMY Inman FINDINGS: RIGHT CAROTID ARTERIES: 1. Common Carotid Artery: Heterogeneous plaque formation of the right common carotid artery. Maximum Peak Systolic velocity: 125 cm/sec: End-diastolic velocity 20 cm/sec. 2. Carotid Bifurcation: plaque formation. Maximum Peak Systolic velocity: 92 cm/sec: End-diastolic velocity 18 cm/sec. 3. Internal Carotid Artery: Plaque description: Calcific 3.1. Proximal Segment: Peak systolic velocity 70 cm/sec: End-diastolic velocity 21 cm/sec - % stenosis 0-15% 3.2. Middle Segment: Peak systolic velocity 72 cm/sec: End-diastolic velocity 21 cm/sec - % stenosis 0-15% 3.3. Distal Segment: Peak systolic velocity 102 cm/sec: End-diastolic velocity 32 cm/sec - % stenosis 0-15% 4. External Carotid Artery: No significant focal plaque formation. Peak systolic velocity 96 cm/sec 5. ICA/CCA Ratio: 0.8 LEFT CAROTID ARTERIES: 1. Common Carotid Artery: Moderate heterogeneous plaque formation of the left mid CCA. Maximum Peak Systolic velocity: 188 cm/sec: End-diastolic velocity 41 cm/sec. 2. Carotid Bifurcation: plaque formation. Maximum Peak Systolic velocity: 136 cm/sec: End-diastolic velocity 13 cm/sec. 3. Internal Carotid Artery: Plaque description: Calcific 3.1. Proximal Segment: Peak systolic velocity 88 cm/sec: End-diastolic velocity 28 cm/sec - % stenosis 0-15% 3.2. Middle Segment: Peak systolic velocity 82 cm/sec: End-diastolic velocity 22 cm/sec - % stenosis 0-15% 3.3. Distal Segment: Peak systolic velocity 80 cm/sec: End-diastolic velocity 19 cm/sec - % stenosis 0-15% 4. External Carotid Artery: No significant focal plaque formation. Peak systolic velocity 96 cm/sec 5. ICA/CCA Ratio: 0.8 VERTEBRAL ARTERIES: 1. Right Vertebral Artery: The right vertebral artery flow direction is antegrade. 2. Left Vertebral Artery: The left vertebral artery flow direction is antegrade. OTHER FINDINGS: 1. Right Brachial Blood pressure: 150 mmHg. 2. Left Brachial Blood pressure: 130 mmHg. IMPRESSION: RIGHT: Duplex scan does not suggest hemodynamically significant stenosis of the right extracranial carotid arteries. LEFT: Duplex scan does not suggest hemodynamically significant stenosis of the left internal carotid artery.. Increased velocity noted at the mid CCA.
== END 2018-01-09 14:25 | disposition short-term general hospital (02) | DRG 287 ==
LOC: C.ER 10:00 → C.7T 14:15 → C.9E 14:37 → C.6T 19:28 → OBSVTOIN 01-06 18:47
PROVIDERS: ADMIT Internal Medicine; ATTEND Internal Medicine
PROC: 4A023N7 Measurement of Cardiac Sampling and Pressure, Left Heart, Percutaneous Approach (ICD-10-PCS; principal; 2018-01-09)
PROC: B2151ZZ Fluoroscopy of Left Heart using Low Osmolar Contrast (ICD-10-PCS; 2018-01-09)
PROC: B2111ZZ Fluoroscopy of Multiple Coronary Arteries using Low Osmolar Contrast (ICD-10-PCS; 2018-01-09)
DX: I25.10 Atherosclerotic heart disease of native coronary artery without angina pectoris (principal); I25.82 Chronic total occlusion of coronary artery; I10 Essential (primary) hypertension; R55 Syncope and collapse; E78.5 Hyperlipidemia, unspecified; R16.0 Hepatomegaly, not elsewhere classified; F17.210 Nicotine dependence, cigarettes, uncomplicated; Z87.11 Personal history of peptic ulcer disease; Z90.49 Acquired absence of other specified parts of digestive tract